=== PATIENT | male | born 1945 | race African-American/Black ===

== ENCOUNTER 2018-02-11 14:55 | Emergency (ER) | payer OTHER ==
[~2018-02-11] VITALS: Ht 177.8 cm; Wt 120.2 kg
[2018-02-11 14:55] VITALS: BP 148/84
[2018-02-11] MEDS ORDERED: Norco 5mg/325mg tab ORAL ONE (15:00)
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
[2018-02-11] MEDS ORDERED: IBUPROFEN600 MG ORAL (16:59)
[2018-02-11] MEDS ORDERED: TRAMADOL HCL50 MG ORAL (16:59)
[2018-02-11] MEDS ORDERED: ROBAXIN500 MG PO (16:59)
[2018-02-11] MEDS ORDERED: oxyCODONE HCL/Acetaminophen 5/325mg ORAL ONE (17:00)
[2018-02-11 17:09] VITALS: BP 135/76
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
--- NOTE | 2018-02-12 15:52 | Cardiology Report ---
APPROVED REPORT EKG Measurement Heart [id number] MO 224P5 [id number] Sinus rhythm with 1st degree AV block Otherwise normal ECG
== END 2018-02-11 18:00 | disposition home or self-care (01) ==
LOC: EDBD 14:55 → EMR 17:13
DX: S13.4XXA Sprain of ligaments of cervical spine, initial encounter (principal); S20.211A Contusion of right front wall of thorax, initial encounter; V43.62XA Car passenger injured in collision with other type car in traffic accident, initial encounter; Y92.414 Local residential or business street as the place of occurrence of the external cause
CPT/HCPCS: 71046; 72040; 93005; 99284